=== PATIENT | male | born 1995 | race Caucasian/White ===

== ENCOUNTER 2017-09-25 16:25 | Emergency (ER) | payer BC ==
[~2017-09-25] VITALS: Ht 170.2 cm; Wt 81.6 kg
[2017-09-25 16:36] VITALS: BP 131/74
[2017-09-25] MEDS ORDERED: KETOROLAC 60 MG/2 ML VIAL IM ONE (19:50)
[2017-09-25 20:18] VITALS: BP 131/74
== END 2017-09-25 20:18 | disposition home or self-care (01) ==
LOC: MED 16:25
DX: S43.102A Unspecified dislocation of left acromioclavicular joint, initial encounter (principal); F17.210 Nicotine dependence, cigarettes, uncomplicated; V87.8XXA Person injured in other specified noncollision transport accidents involving motor vehicle (traffic), initial encounter; Y93.89 Activity, other specified; Y92.89 Other specified places as the place of occurrence of the external cause; Y99.8 Other external cause status
CPT/HCPCS: 73030; 96372; 99284; J1885

== ENCOUNTER 2017-11-29 11:38 | Emergency (ER) | payer BC ==
[~2017-11-29] VITALS: Ht 170.2 cm; Wt 81.6 kg
[2017-11-29 11:53] VITALS: BP 136/76
[2017-11-29 14:11] VITALS: BP 123/79
== END 2017-11-29 14:11 | disposition home or self-care (01) ==
LOC: MED 11:38
DX: S61.412A Laceration without foreign body of left hand, initial encounter (principal); F17.210 Nicotine dependence, cigarettes, uncomplicated; W54.0XXA Bitten by dog, initial encounter; Y93.89 Activity, other specified; Y92.89 Other specified places as the place of occurrence of the external cause; Y99.8 Other external cause status
CPT/HCPCS: 90471; 90715; 99283

== ENCOUNTER 2018-02-02 15:59 | Emergency (ER) | payer BC ==
[~2018-02-02] VITALS: Ht 170.2 cm; Wt 83.5 kg
[2018-02-02 16:02] VITALS: BP 157/90
--- NOTE | 2018-02-02 16:10 | NUR ---
PT AMBULATES TO BED 2, REPORT GIVEN TO ADRIAN HAMMOND
[2018-02-02 16:15] VITALS: BP 140/87
--- NOTE | 2018-02-02 16:20 | NUR ---
PATIENT PRESENTS TO ED WITH COMPLAINTS OF HEAD INJURY, LACERATION, AND HEMATOMA X 1 HOUR. PATIENT STATES HE WAS WORKING ON A GATE AND GATE FELL ON HEAD. DENIES LOC, N/V. PUPILS PERRLA. SKIN IS PINK/WARM/DRY; AAOX4 WITH EVEN AND STEADY GAIT; LUNGS CLEAR BL; HR EVEN AND REGULAR; PT DENIES ANY FEVER, CP, SOB, OR COUGH AT THIS TIME; PATIENT STATES PAIN OF 9/10 AT THIS TIME; VSS; PATIENT POSITIONED FOR COMFORT; HOB ELEVATED; BEDRAILS UP X1; BED DOWN. ER MD MADE AWARE OF PT STATUS.
--- NOTE | 2018-02-02 17:18 | NUR ---
EMT DRESSING WOUND AT BEDSIDE
[2018-02-02] MEDS ORDERED: IBUPROFEN 600 MG TAB PO ONE (17:20)
--- NOTE | 2018-02-02 18:20 | NUR ---
Patient discharged with v/s stable. Written and verbal after care instructions given and explained. Patient verbalized understanding. Ambulatory with steady gait. All questions addressed prior to discharge. Advised to follow up with PMD.
== END 2018-02-02 18:20 | disposition home or self-care (01) ==
LOC: MED 15:59
DX: S01.01XA Laceration without foreign body of scalp, initial encounter (principal); W18.09XA Striking against other object with subsequent fall, initial encounter; Y93.89 Activity, other specified; Y92.89 Other specified places as the place of occurrence of the external cause; Y99.8 Other external cause status
CPT/HCPCS: 12001; 99283